=== PATIENT | female | born 1975 ===

== ENCOUNTER 2020-03-24 18:13 | Emergency (ER) | payer OTHER ==
[~2020-03-24] VITALS: Ht 160 cm; Wt 63.6 kg
[2020-03-24 18:20] VITALS: Ht 160 cm; Wt 63.6 kg
[2020-03-24] MEDS ORDERED: ZOLOFT25 MG PO (18:21)
[2020-03-24 20:00] LABS: BASOPHILS 0.1 % (0-2); EOSINOPHILS 1.9 % (0-7); HEMATOCRIT 40.8 % (36.0-48.0); HEMOGLOBIN 13.3 g/dL (12-16); IMMATURE GRANULOCYTES 0.3 % (0-5); LYMPHOCYTES 32.8 % (15-50); MCH 29.9 pg (26.0-34.0); MCHC 32.6 g/dL (31.0-37.0); MCV 91.7 fL (80.0-100.0); MEAN PLATELET VOLUME 9.6 fL (7.4-10.4); NEUTROPHILS 54.9 % (40-80); PLATELET COUNT 242 10x3/uL (130-400); RBC 4.45 10x6/uL (4.00-5.40); WBC 7.9 10x3/uL (4.8-10.8)
[2020-03-24 20:05] LABS: CALC OSMOLALITY 276 mosm/kg (275-300); CHLORIDE - SERUM 104 mmol/L (98-107); CREATININE - SERUM 0.7 mg/dL (0.6-1.3); GLUCOSE 94 mg/dL (74-106); POTASSIUM - SERUM 4.1 mmol/L (3.5-5.1); SODIUM 139 mmol/L (136-145); UREA NITROGEN 10 mg/dL (7-18); eGFR NON AFRICAN AMERICAN > 90 mL/min (90-120)
[2020-03-24 20:14] LABS: APTT 35.2 SECONDS (22.8-39.4); INR 0.93 (0.85-1.17); PROTIME 12.5 SECONDS (11.6-15.0)
[2020-03-24 20:20] LABS: ALBUMIN 3.6 g/dL (3.4-5.0); ALKALINE PHOSPHATASE 88 U/L (30-120); ALT (SGPT) 38 U/L (10-68); BILIRUBIN - TOTAL 0.22 mg/dL (0.2-1.3); CKMB 0.5 U/L (0.0-3.6); CREATINE KINASE 113 UL (21-215); MAGNESIUM - SERUM 2.2 mg/dL (1.8-2.4); PROTEIN - SERUM 7.1 g/dL (6.4-8.2)
[2020-03-24 20:21] LABS: TROPONIN-I < 0.017 ng/mL (0.000-0.060)
[2020-03-24] MEDS ORDERED: ZANAFLEX4 MG PO (20:44)
[2020-03-24] MEDS ORDERED: VOLTAREN75 MG PO (20:44)
[2020-03-24 21:07] VITALS: BP 118/85
== END 2020-03-24 21:07 | disposition home or self-care (01) ==
LOC: D.ER 18:13
PROVIDERS: Family Medicine
DX: M25.512 Pain in left shoulder (principal); R07.9 Chest pain, unspecified